=== PATIENT | female | born 1990 | race Caucasian/White ===

== ENCOUNTER → 2024-09-07 14:28 | Outpatient (REF) | payer OTHER, SELFPAY | LOC: HWRAD 14:28 | PROVIDERS: ATTENDING PHYSICIAN Nurse Practitioner Family | DX: R51.9 Headache, unspecified (principal); R68.89 Other general symptoms and signs; S09.90XA Unspecified injury of head, initial encounter; M54.2 Cervicalgia | CPT/HCPCS: 70450; 72040 ==